=== PATIENT | male | born 1975 | race Caucasian/White ===

== ENCOUNTER → 2017-07-02 | Outpatient (CLI) | payer OTHER ==
--- NOTE | 2017-07-02 15:57 | RAD ---
Left hand, 3 views, 07/02/2017: History: Hand pain, fall There is an old nonunited fracture of the ulnar styloid. Tiny calcific densities along the margin of the first CMC joint are probably due to old trauma. There is deformity of the terminal tuft of the distal phalanx of the thumb which also appears old. No acute fracture or dislocation is identified. IMPRESSION: No acute bony abnormality is detected.
== END | disposition home or self-care (01) ==
LOC: DXRAD 15:25
PROVIDERS: ATTEND Psychiatry & Neurology Neurology
DX: M25.542 Pain in joints of left hand (principal); S52.612D Displaced fracture of left ulna styloid process, subsequent encounter for closed fracture with routine healing; X58.XXXD Exposure to other specified factors, subsequent encounter
CPT/HCPCS: 73130

== ENCOUNTER → 2017-07-23 | Outpatient (CLI) | payer OTHER ==
[2017-07-23 10:25] LABS: BASO # 0.1 x10^3/uL (0.0-0.2); BASO % 1 % (0-3); EOS # 0.2 x10^3/uL (0.0-0.7); EOS % 3 % (0-3); HEMATOCRIT 49.8 % (39.0-53.0); HEMOGLOBIN 17.3 g/dL (13.0-17.5); LYMPH # 2.3 x10^3/uL (1.0-4.8); LYMPH % 31 % (24-48); MEAN CORPUSCULAR HEMOGLOBIN 31 pg (25-35); MEAN CORPUSCULAR HGB CONC 35 g/dL (31-37); MEAN CORPUSCULAR VOLUME 88 fL (79-100); MONO # 0.5 x10^3/uL (0.0-1.1); MONO % 7 % (0-9); NEUT # 4.4 x10^3uL (1.8-7.7); NEUT % 58 % (31-73); PLATELET COUNT 230 x10^3/uL (140-400); RED BLOOD COUNT 5.64 x10^6/uL (4.30-5.70); RED CELL DISTRIBUTION WIDTH 13.4 % (11.5-14.5); WHITE BLOOD COUNT 7.5 x10^3/uL (4.0-11.0)
[2017-07-23 10:34] LABS: ALBUMIN 4.4 g/dL (3.4-5.0); ALBUMIN/GLOBULIN RATIO 1.2 (1.0-1.7); CALCIUM 9.6 mg/dL (8.5-10.1); GFR 82.8; TOTAL BILIRUBIN 0.5 mg/dL (0.2-1.0)
[2017-07-23 13:51] LABS: FREE T4 0.9 ng/dL (0.76-1.46); THYROID STIM HORMONE (TSH) 1.436 uIU/mL (0.358-3.740)
== END | disposition home or self-care (01) ==
LOC: LAB 09:22
PROVIDERS: ATTEND Physician Assistant
DX: Z51.81 Encounter for therapeutic drug level monitoring (principal); Z79.899 Other long term (current) drug therapy
CPT/HCPCS: 36415; 80053; 80061; 84439; 84443; 84480; 85025

== ENCOUNTER → 2017-07-25 | Outpatient (CLI) | payer OTHER ==
--- NOTE | 2017-07-25 17:29 | RAD ---
Left hand, 3 views, 07/25/2017: History: Injury There is mild deformity of the distal aspect of the distal phalanx of the thumb compatible with old trauma. No acute fracture or dislocation is identified. The soft tissues are unremarkable. IMPRESSION: No acute bony abnormality is detected. Left wrist, 3 views, 07/25/2017: There is an old nonunited fracture of the ulnar styloid. No acute fracture or dislocation is identified. There is minimal spurring at the first CMC joint.
== END | disposition home or self-care (01) ==
LOC: RAD 16:44
PROVIDERS: ATTEND Psychiatry & Neurology Neurology
DX: M21.942 Unspecified acquired deformity of hand, left hand (principal); M25.842 Other specified joint disorders, left hand; S52.612D Displaced fracture of left ulna styloid process, subsequent encounter for closed fracture with routine healing; X58.XXXD Exposure to other specified factors, subsequent encounter
CPT/HCPCS: 73110; 73130

== ENCOUNTER → 2018-09-04 | Outpatient (CLI) | payer OTHER ==
[2018-09-04 10:26] LABS: BASO # 0.1 x10^3/uL (0.0-0.2); BASO % 1 % (0-3); EOS # 0.2 x10^3/uL (0.0-0.7); EOS % 3 % (0-3); HEMATOCRIT 47.5 % (39.0-53.0); HEMOGLOBIN 16.2 g/dL (13.0-17.5); LYMPH # 1.7 x10^3/uL (1.0-4.8); LYMPH % 24 % (24-48); MEAN CORPUSCULAR HEMOGLOBIN 30 pg (25-35); MEAN CORPUSCULAR HGB CONC 34 g/dL (31-37); MEAN CORPUSCULAR VOLUME 87 fL (79-100); MONO # 0.5 x10^3/uL (0.0-1.1); MONO % 7 % (0-9); NEUT # 4.8 x10^3uL (1.8-7.7); NEUT % 66 % (31-73); PLATELET COUNT 255 x10^3/uL (140-400); RED BLOOD COUNT 5.48 x10^6/uL (4.30-5.70); RED CELL DISTRIBUTION WIDTH 13.6 % (11.5-14.5); WHITE BLOOD COUNT 7.3 x10^3/uL (4.0-11.0)
[2018-09-04 10:37] LABS: ALBUMIN 4.2 g/dL (3.4-5.0); ALBUMIN/GLOBULIN RATIO 1.2 (1.0-1.7); CALCIUM 9.1 mg/dL (8.5-10.1); GFR 82.3; POTASSIUM 4.1 mmol/L (3.5-5.1); TOTAL BILIRUBIN 0.4 mg/dL (0.2-1.0); TOTAL PROTEIN 7.7 g/dL (6.4-8.2)
[2018-09-04 14:28] LABS: FREE T4 0.76 ng/dL (0.76-1.46)
[2018-09-04 14:29] LABS: THYROID STIM HORMONE (TSH) 1.152 uIU/mL (0.358-3.740)
== END | disposition home or self-care (01) ==
LOC: LAB 09:38
PROVIDERS: ATTEND Physician Assistant
DX: Z79.899 Other long term (current) drug therapy (principal)
CPT/HCPCS: 36415; 80053; 80061; 84439; 84443; 84480; 85025

== ENCOUNTER → 2020-04-28 | Outpatient (CLI) | payer OTHER ==
[2020-04-28 11:05] LABS: BASO % 1 % (0-3); EOS # 0.2 x10^3/uL (0.0-0.7); EOS % 3 % (0-3); HEMATOCRIT 47.2 % (39.0-53.0); LYMPH # 1.7 x10^3/uL (1.0-4.8); LYMPH % 23 % (24-48); MEAN CORPUSCULAR HEMOGLOBIN 31 pg (25-35); MEAN CORPUSCULAR HGB CONC 34 g/dL (31-37); MEAN CORPUSCULAR VOLUME 90 fL (79-100); MONO # 0.4 x10^3/uL (0.0-1.1); MONO % 6 % (0-9); NEUT % 68 % (31-73); PLATELET COUNT 185 x10^3/uL (140-400); RED BLOOD COUNT 5.24 x10^6/uL (4.30-5.70); RED CELL DISTRIBUTION WIDTH 13.5 % (11.5-14.5); WHITE BLOOD COUNT 7.3 x10^3/uL (4.0-11.0)
[2020-04-28 11:15] LABS: ALBUMIN 4.3 g/dL (3.4-5.0); ALBUMIN/GLOBULIN RATIO 1.2 (1.0-1.7); CALCIUM 9.4 mg/dL (8.5-10.1); CREATININE 1.1 mg/dL (0.7-1.3); GFR 73.1; POTASSIUM 4.3 mmol/L (3.5-5.1); TOTAL BILIRUBIN 0.2 mg/dL (0.2-1.0); TOTAL PROTEIN 7.9 g/dL (6.4-8.2)
[2020-04-28 14:21] LABS: FREE T4 0.9 ng/dL (0.76-1.46); THYROID STIM HORMONE (TSH) 0.838 uIU/mL (0.358-3.740)
== END ==
LOC: LAB 09:34
PROVIDERS: ATTEND Physician Assistant
DX: F20.0 Paranoid schizophrenia (principal); Z79.899 Other long term (current) drug therapy
CPT/HCPCS: 36415; 80053; 80061; 83036; 84439; 84443; 84480; 85025

== ENCOUNTER 2021-11-30 22:17 | Emergency (ER) | payer OTHER ==
[~2021-11-30] VITALS: Ht 170.2 cm; Wt 84.5 kg
--- NOTE | 2021-11-30 22:25 | PHYS DOC ---
General Adult HPI: HPI: " I am seeing people.. they sometimes tell me to kill myself. but I would never do that.. the doctor has been adjusting my meds.... taking me offf the Ativan.. and put me on Depakote... I am schizophrenic... Patient is a 45 year old male who presents with above hx and complaints of Hallucinations and delusions. Patient recently has had modification in his psych meds. Recently taken off Ativan which he been on for years. Patient has been compliant with his other psychotropics. 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 No recent travel. No illicit drug use. Trauma.. No specific ill contacts. Patient is states he is not suicidal. It just that sometimes voices tell him he needs to .. Pt. follows with [facility] for care. Review of Systems: Review of Systems: Constitutional: Denies fever or chills Eyes: Denies change in visual acuity HENT: Denies nasal congestion or sore throat Respiratory: Denies cough or shortness of breath Cardiovascular: Denies chest pain or edema GI: Denies abdominal pain, nausea, vomiting, bloody stools or diarrhea : Denies dysuria Musculoskeletal: Denies back pain or joint pain Integument: Denies rash Neurologic: Denies headache, focal weakness or sensory changes Endocrine: Denies polyuria or polydipsia Lymphatic: Denies swollen glands Psychiatric: Complains of hallucinations Family History: Family History: Noncontributory to presentation Current Medications: Current Meds: See nursing for home meds Allergies: Allergies: No known drug allergies Physical Exam: PE: Constitutional: no acute distress, non-toxic appearance. [] HENT: Normocephalic, atraumatic, bilateral external ears normal, oropharynx moist, no oral exudates, nose normal. [] Eyes: PERRLA, EOMI, conjunctiva normal, no discharge. [] Neck: Normal range of motion, no tenderness, supple, no stridor. [] Cardiovascular:Heart rate regular rhythm, no murmur [] Lungs & Thorax: Bilateral breath sounds equal apex few scattered wheezes. Auscultation [] Abdomen: Bowel sounds normal, soft, no tenderness, no masses, no pulsatile masses. [] Skin: Warm, dry, no erythema, no rash. [] Back: No tenderness, no CVA tenderness. [] Extremities: No tenderness, no cyanosis, no clubbing, ROM intact, no edema. [] Moves all Neuro : Moves all extremities on request, has distal sensory, no focal deficits noted. [] Psychologic: Affect normal, judgement normal, mood normal. Does admit to hallucinations and delusions. Denies suicidal ideation. Denies homicidal ideation. Patient is very polite EKG: EKG: My interpretation first EKG shows a sinus rhythm at 67 bpm. Leftward axis. No acute morphology. Time of first EKG is 2252 My interpretation second EKG shows a sinus rhythm at 69 bpm. Leftward axis. No acute morphology. Time of EKG is 2345. Radiology/Procedures: Radiology/Procedures: [][place] [address] IMAGING REPORT Signed PATIENT: LILIANA EDWARDS ACCOUNT: [id number] : 1975 LOCATION: ER AGE: 45 SEX: M EXAM STATUS: PRE ER ORD. PHYSICIAN: WILLIAMS LOPEZ MD REASON: dyspnea PROCEDURE: PORTABLE CHEST 1V XR CHEST 1V Clinical History: Reason: dyspnea / Spl. Instructions: / History: Technique: AP view of the chest was obtained at 11/30/2021 10:45 PM. Comparison: None. Findings: The cardiomediastinal silhouette is normal. The pulmonary vasculature is normal. The lungs and pleural margins are clear. Impression: No evidence of an acute cardiopulmonary process. Electronically signed by: Francisca Rock III, MD (11/30/2021 11:42 PM) [facility] DICTATED AND SIGNED BY: FRANCISCA ROCK III, MD DATE: 11/30/21 150 CC: WILLIAMS LOPEZ MD; JANICE CHURCH ~MTH0 0 Heart Score: C/O Chest Pain: N/A Risk Factors: Risk Factors: DM, Current or recent (<one month) smoker, HTN, HLP, family history of CAD, obesity. Risk Scores: Score 0 - 3: 2.5% MACE over next 6 weeks - Discharge Home Score 4 - 6: 20.3% MACE over next 6 weeks - Admit for Clinical Observation Score 7 - 10: 72.7% MACE over next 6 weeks - Early Invasive Strategies Course & Med Decision Making: Course & Med Decision Making Pertinent Labs and Imaging studies reviewed. (See chart for details) See PAT evaluation Keep follow up counseling center and with [facility]. Impression: 1. Hallucinations 2. Delusions 3. Schizophrenia [] Dragon Disclaimer: Dragon Disclaimer: This electronic medical record was generated, in whole or in part, using a voice recognition dictation system. Departure Departure: Referrals: JANICE CHURCH (PCP) Scripts No Active Prescriptions or Reported Meds Dragon Disclaimer This chart was dictated in whole or in part using Voice Recognition software in a busy, high-work load, and often noisy Emergency Department environment. It may contain unintended and wholly unrecognized errors or omissions. WILLIAMS LOPEZ MD Nov 30, 2021 22:25
[2021-11-30] MEDS ORDERED: IV RINGERS SOLUTION,LACTATED 1,000 ML IV SCH (22:30)
[2021-11-30 23:14] LABS: BASO % 1 % (0-3); EOS # 0.2 x10^3/uL (0.0-0.7); EOS % 3 % (0-3); HEMATOCRIT 42.4 % (39.0-53.0); HEMOGLOBIN 14.5 g/dL (13.0-17.5); LYMPH # 1.9 x10^3/uL (1.0-4.8); LYMPH % 28 % (24-48); MEAN CORPUSCULAR HEMOGLOBIN 31 pg (25-35); MEAN CORPUSCULAR HGB CONC 34 g/dL (31-37); MEAN CORPUSCULAR VOLUME 89 fL (79-100); MONO # 0.6 x10^3/uL (0.0-1.1); MONO % 9 % (0-9); NEUT # 4.1 x10^3uL (1.8-7.7); NEUT % 60 % (31-73); PLATELET COUNT 164 x10^3/uL (140-400); RED BLOOD COUNT 4.75 x10^6/uL (4.30-5.70); RED CELL DISTRIBUTION WIDTH 13.8 % (11.5-14.5); WHITE BLOOD COUNT 6.8 x10^3/uL (4.0-11.0)
[2021-11-30 23:22] LABS: ANION GAP 10 (6-14); BLOOD UREA NITROGEN 19 mg/dL (8-26); CALCIUM 9.1 mg/dL (8.5-10.1); CARBON DIOXIDE 26 mmol/L (21-32); CHLORIDE 103 mmol/L (98-107); CREATININE 0.9 mg/dL (0.7-1.3); GFR 91.7; GLUCOSE 89 mg/dL (70-99); POTASSIUM 3.9 mmol/L (3.5-5.1); SODIUM 139 mmol/L (136-145)
[2021-11-30 23:24] LABS: INFLUENZA A PATIENT NEGATIVE (NEGATIVE); INFLUENZA B PATIENT NEGATIVE (NEGATIVE)
[2021-11-30 23:31] LABS: ACETAMIN < 2.0 mcg/mL (10-30); ETHANOL < 10 mg/dL (0-10); SALIC < 2.8 mg/dL (2.8-20.0)
[2021-11-30 23:35] LABS: ALBUMIN 4.1 g/dL (3.4-5.0); ALK PHOS 78 U/L (46-116); ALT (SGPT) 39 U/L (16-63); AST (SGOT) 32 U/L (15-37); DIRECT BILIRUBIN 0.1 mg/dL (0.0-0.2); LIPASE 169 U/L (73-393); TOTAL BILIRUBIN 0.3 mg/dL (0.2-1.0); TOTAL PROTEIN 7.3 g/dL (6.4-8.2)
--- NOTE | 2021-11-30 23:44 | RAD ---
XR CHEST 1V Clinical History: Reason: dyspnea / Spl. Instructions: / History: Technique: AP view of the chest was obtained at 11/30/2021 10:45 PM. Comparison: None. Findings: The cardiomediastinal silhouette is normal. The pulmonary vasculature is normal. The lungs and pleura l margins are clear. Impression: No evidence of an acute cardiopulmonary process. Electronically signed by: Javi Floyd III, MD (11/30/2021 11:42 PM) [facility]
--- NOTE | 2021-11-30 23:55 | EKG ---
[address] [address] Test Date: 2021-11-30 Test Time: 22:52:09 Pat Name: LILIANA EDWARDS Department: Room: Gender: M [employer] Agent: BENJAMIN : 1975 Requested By: WILLIAMS LOPEZ Order Number: [id number] Reading MD: Measurements Intervals [place] Rate: 67 P: 28 SD: 160 QRS: 0 QRSD: 102 T: 34 QT: 386 QTc: 411 Interpretive Statements SINUS RHYTHM LEFTWARD AXIS OTHERWISE NORMAL ECG RI6.02 No previous ECG available for comparison
--- NOTE | 2021-11-30 23:55 | EKG ---
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
[2021-12-01] MEDS ORDERED: cloNIDine HCL 0.1 MG TABLET PO ONE (00:30)
[2021-12-01] MEDS ORDERED: cloNIDine TTS-2 1 PATCH PATCH TD ONE (00:30)
[2021-12-01 00:48] LABS: BACTERIA,URINE 0 /HPF (0-FEW); BILIRUBIN,URINE NEG (NEG); CLARITY,URINE CLEAR; COLOR,URINE YELLOW; GLUCOSE,URINE NEG (NEG); NITRITE,URINE NEG (NEG); RBC,URINE OCC /HPF (0-2); UROBILINOGEN,URINE 0.2 mg/dL (0.2 mg/dL); WBC,URINE RARE /HPF (0-4)
[2021-12-01 00:52] LABS: BARBITURATES NEG (NEG); BENZODIAZEPINES NEG (NEG); CANNABINOIDS NEG (NEG); COCAINE NEG (NEG); METHADONE NEG (NEG); OPIATES NEG (NEG); PHENCYCLIDINE NEG (NEG)
[2021-12-01 00:55] LABS: AMPHETAMINE/METHAMPHETAMINE NEG (NEG)
[2021-12-01] MEDS ORDERED: ACETAMINOPHEN 500 MG TABLET PO ONE (01:30)
[2021-12-01 01:55] VITALS: BP 143/92
[2021-12-01] MEDS ORDERED: LORazepam 1 MG TABLET PO ONE (02:00)
== END 2021-12-01 02:20 | disposition home or self-care (01) ==
LOC: ER 22:17
DX: F20.9 Schizophrenia, unspecified (principal); F22 Delusional disorders; Z20.822 Contact with and (suspected) exposure to COVID-19
CPT/HCPCS: 36415; 71045; 80048; 80076; 80164; 80307; 80329; 81001; 82550; 83690; 83735; 83880; 84443; 84484; 85025; 85379; 85610; 85730; 87428; 93005; 96360; 99285; C9803; G0480; J7120; U0003

== ENCOUNTER → 2021-12-05 | Outpatient (CLI) | payer OTHER ==
[2021-12-01 01:55] VITALS: BP 143/92
[2021-12-05 10:18] LABS: BASO % 0 % (0-3); EOS # 0.2 x10^3/uL (0.0-0.7); EOS % 3 % (0-3); HEMATOCRIT 42.7 % (39.0-53.0); HEMOGLOBIN 14.5 g/dL (13.0-17.5); LYMPH # 2.1 x10^3/uL (1.0-4.8); LYMPH % 26 % (24-48); MEAN CORPUSCULAR HEMOGLOBIN 30 pg (25-35); MEAN CORPUSCULAR HGB CONC 34 g/dL (31-37); MEAN CORPUSCULAR VOLUME 89 fL (79-100); MONO # 0.6 x10^3/uL (0.0-1.1); MONO % 7 % (0-9); NEUT % 63 % (31-73); PLATELET COUNT 143 x10^3/uL (140-400); RED BLOOD COUNT 4.78 x10^6/uL (4.30-5.70); WHITE BLOOD COUNT 7.9 x10^3/uL (4.0-11.0)
[2021-12-05 10:34] LABS: ALBUMIN 4.5 g/dL (3.4-5.0); ALBUMIN/GLOBULIN RATIO 1.4 (1.0-1.7); ALK PHOS 84 U/L (46-116); ALT (SGPT) 42 U/L (16-63); ANION GAP 4 (6-14); AST (SGOT) 25 U/L (15-37); BLOOD UREA NITROGEN 12 mg/dL (8-26); BUN/CREATININE RATIO 17 (6-20); CALCIUM 9.1 mg/dL (8.5-10.1); CARBON DIOXIDE 30 mmol/L (21-32); CHLORIDE 94 mmol/L (98-107); CREATININE 0.7 mg/dL (0.7-1.3); GFR 122.5; GLUCOSE 79 mg/dL (70-99); POTASSIUM 3.6 mmol/L (3.5-5.1); SODIUM 128 mmol/L (136-145); TOTAL BILIRUBIN 0.4 mg/dL (0.2-1.0); TOTAL PROTEIN 7.7 g/dL (6.4-8.2)
[2021-12-05 10:37] LABS: VAL ACID 34 mcg/mL (50-100)
[2021-12-05 20:26] LABS: FREE T4 0.86 ng/dL (0.76-1.46); THYROID STIM HORMONE (TSH) 1.441 uIU/mL (0.358-3.740)
== END ==
LOC: LAB 09:31
PROVIDERS: ATTEND Physician Assistant
DX: Z79.899 Other long term (current) drug therapy (principal)
CPT/HCPCS: 36415; 80053; 80164; 84439; 84443; 84480; 85025